=== PATIENT | male | born 1950 | race Hispanic/Latino ===

== ENCOUNTER → 2018-04-21 | Outpatient (CLI) | payer OTHER ==
--- NOTE | 2018-04-21 16:39 | Diagnostic Imaging Report ---
PROCEDURE:X-RAY ABDOMEN - KUB COMPARISON:None. INDICATIONS:SHARP LOWER ABDOMEN PAIN FINDINGS: There is a non-obstructed bowel-gas pattern. 0.7 cm radiopaque density projects in the lower pole of the left renal shadow. No other radiopaque densities project over the genitourinary system. No acute bony abnormalities. The lung bases are clear. CONCLUSION: 0.7 cm nonobstructing calculus in the lower pole of the left kidney. Charly Walsh M.D. Dictated by: Charly Walsh M.D. on 04/21/2018 at 16:44 Electronically approved by: Charly Walsh M.D. on 04/21/2018 at 16:44
== END ==
LOC: RAD 14:35
PROVIDERS: ATTEND Internal Medicine
DX: R10.30 Lower abdominal pain, unspecified (principal); K59.01 Slow transit constipation
CPT/HCPCS: 74018

== ENCOUNTER → 2018-05-26 | Day surgery (SDC) | payer OTHER ==
[2018-05-25 13:36] LABS: BASOPHILS % 0.4 % (0.0-1.0); EOSINOPHILS # (AUTO) 0.3 (0.0-0.4); EOSINOPHILS % 2.6 % (0.0-6.0); HEMATOCRIT 44.9 % (38.2-49.6); LYMPHOCYTES # (AUTO) 4.7 (1.0-3.2); LYMPHOCYTES % 48.8 % (18.0-39.1); MEAN CORPUSCULAR HEMOGLOBIN 31.6 pg (28-32); MEAN CORPUSCULAR HGB CONC 35.6 g/dL (31-35); MEAN CORPUSCULAR VOLUME 88.7 fL (81-99); MONOCYTES # (AUTO) 0.8 (0.2-0.8); MONOCYTES % 8.7 % (4.4-11.3); NEUTROPHILS # (AUTO) 3.8 (2.1-6.9); PLATELET COUNT 193 x10e3/uL (140-360); RED BLOOD COUNT 5.06 x10e6/uL (4.3-5.7); RED CELL DISTRIBUTION WIDTH 12.1 % (11.7-14.4)
--- NOTE | 2018-05-25 15:44 | Diagnostic Imaging Report ---
PROCEDURE: Frontal and lateral views of the chest. COMPARISON: None. INDICATIONS: PRE OPERATIVE PROSTATE SURGERY FINDINGS: Lines/tubes: None. Lungs: Low lung volumes with bibasilar atelectasis. No focal consolidation. Pleura: There is no pleural effusion or pneumothorax. Heart and mediastinum: The heart size is normal. There is tortuosity of the thoracic aorta. Bones: No acute bony abnormality. Multilevel degenerative changes of the thoracic spine. IMPRESSION: 1. No acute cardiopulmonary disease. Dictated by: Addison Small M.D. on 05/25/2018 at 15:50 Electronically approved by: Addison Small M.D. on 05/25/2018 at 15:50
[~2018-05-26] MED LIST: ACETAMINOPHEN325 M1 PO; ASPIR 8181 MG PO; CEFAZOLIN SOD 1 GM VIAL ONE; DEXAMETHASONE SOD PHOS INJ 4 MG/ML VIAL ONE; FENTANYL CITRATE/PF 100MCG/2 ML INJ ONE; FLOMAX0.4 MG PO; GLYCOPYRROLATE INJ 1MG/ 5 ML SYR ONE; IOPAMIDOL 300MG/ML 50ML INFUS..BTL IV ONE; LIDOCAINE HCL 2% LOCAL INJ 5 ML SDV VIAL INJ ONE; MIDAZOLAM HCL 2 MG/2 ML VIAL ONE; ONDANSETRON HCL INJ 2 MG/ML VIAL ONE; PROPOFOL IV EMULSION 10 MG/ML 20 ML VIAL ONE; SEVOFLURANE INHAL SOLN 250 ML PEN BTL ONE
[2018-05-26 14:20] VITALS: BP 165/88
--- NOTE | 2018-05-26 14:31 | Diagnostic Imaging Report ---
Bilateral retrograde urography Indications: Renal calculus Comparison: Abdomen x-ray 04/21/2018 Findings: RADIATION DOSE: Fluoroscopy Time: 00:23 sec Dose (Kerma) Area Product: 257.74 microGycm2 Air Kerma (AK) value (7.19 mGy) has been reviewed. It is below the limits set by the Radiation Protocol Committee (RPC) committee. Contrast was injected into the left ureter in a retrograde fashion.The caliber of the left ureter appear normal .Left renal collecting system filled normally. Contrast was injected into the right ureter in a retrograde fashion. The caliber of the right ureter appear normal. Right renal collecting system also filled unremarkably. IMPRESSION: Unremarkable bilateral retrograde urography. Signed by: Dr. Malachi Mejia MD on 05/26/2018 2:28 PM
--- NOTE | 2018-05-26 21:09 | Operative Report ---
DATE OF PROCEDURE: May 26, 2018 SERVICE: Urology. PREOPERATIVE DIAGNOSES: 1. Urinary tract infection. 2. Microhematuria. 3. Benign prostatic hypertrophy with obstruction. POSTOPERATIVE DIAGNOSES: 1. Urinary tract infection. 2. Microhematuria. 3. Benign prostatic hypertrophy with obstruction. OPERATIONS PERFORMED: 1. Cystoscopy, bilateral retrograde pyelograms under fluoroscopic control. 2. Interpretation of x-ray, radiologist not present. 3. Supervision of fluoroscopy, radiologist not present. 4. Plasma removal of the prostate. FUR LINER: None. ANESTHESIA: General. CLINICAL INDICATION NOTE: [id number] patient has significant voiding symptoms with frequency, hesitancy, low stream, and residual urine, who was brought for assessment of the upper tract as well as treatments of removing the obstructing prostatic tissue. Procedure was discussed with the patient and postop recommendations were given. DESCRIPTION OF PROCEDURE AND FINDINGS: After proper level of anesthesia was achieved, the patient was placed in lithotomy position, prepped and draped in sterile fashion. The urethra inspected is unremarkable, but the outlet is obstructed by enlarged prostate composed of 3 lobes, median lobe and 2 lateral lobes. Bladder is trabeculated. No tumor or foreign bodies identified in the bladder. Cone-tipped catheters were used and bilateral retrograde pyelograms were done under fluoroscopic control. No intrinsic lesions were identified. The drainage was prompt from both sides. Following this, the resection instrument was inserted and plasma treatment of the prostate was done. The median lobe was treated first and then the 2 lateral lobes. Care was taken not to go distal to the small verumontanum. Following the removal of the prostatic tissue, any visible bleeding points were carefully coagulated. A 24 3-way Porter catheter was then inserted and patient was connected to continuous irrigation with normal saline. He was transferred to recovery room, and if there are no problems, he will be discharged and followed as outpatient. Postop instruction given. Job#: [id number]
== END | disposition home or self-care (01) ==
LOC: OR 09:15
PROVIDERS: ATTEND Urology
DX: N40.1 Benign prostatic hyperplasia with lower urinary tract symptoms (principal); N39.0 Urinary tract infection, site not specified; N13.8 Other obstructive and reflux uropathy; R35.0 Frequency of micturition; R39.11 Hesitancy of micturition; R39.12 Poor urinary stream; N32.89 Other specified disorders of bladder; Z01.810 Encounter for preprocedural cardiovascular examination; Z01.812 Encounter for preprocedural laboratory examination; Z01.818 Encounter for other preprocedural examination; Z79.82 Long term (current) use of aspirin
CPT/HCPCS: 36415; 52005; 52601; 71046; 74420; 85025; 93005; C1758; J0690; J1100; J2001; J2250; J2405; J3490; Q9967